=== PATIENT | female | born 1980 | race Hispanic/Latino ===

== ENCOUNTER 2018-09-11 22:45 | Emergency (ER) | payer SELFPAY ==
[2018-09-11 22:46] VITALS: BP 114/69; PULSE 63; RESP 15; TEMP 36.8; O2SAT 100; BMI 20.2
[2018-09-11 22:55] VITALS: BP 112/68; PULSE 72; RESP 15; TEMP 37; O2SAT 99
--- NOTE | 2018-09-11 23:53 | ED.VIS.GEN ---
History of Present Illness Chief Complaint: Abd Pain Informant: Patient Narrative: She presents with lower abdominal pain. She states is over her bladder. She has had urinary tract infections in the remote past. She describes a aching pain in that area. She tried 2 doses of azithromycin. Is been going on for 1 week. She denies . She denies history of sexual transmitted disease. No vaginal symptoms. No fevers or chills. She denies any pain in her left lower or right lower regions. She is passing normal gas. No diarrhea. No previous abdominal surgeries. Past Medical History - Allergies and Home Meds Allergies/Adverse Reactions: Allergies No Known Allergies Allergy (Verified 09/11/18 22:55) Primary Care Physician: [facility] Doctor,Out of [NON-STAFF] - Prior records reviewed: Yes Past Medical History: - - Tract infection Surgical History: no surgical history Smoking Status: Never smoker Alcohol: None Drugs: None Review of Systems General: Denies: Chills, Fever, Sweats Eyes: Denies: Visual changes - bilaterally, Diplopia ENT: Denies: Rhinorrhea, Sore throat Cardiovascular: Denies: Chest pain, Palpitations Respiratory: Denies: Dyspnea, Cough, Dyspnea on exertion Gastrointestinal: Reports: Abdominal pain. Denies: Nausea, Vomiting, Diarrhea, Melena, Hematochezia Genitourinary: Denies: Dysuria, Hematuria, Frequency Musculoskeletal: Denies: Back pain, Extremity Pain Skin: Denies: Rash, Wounds Neurological: Denies: Headache, Weakness, Numbness Physical Exam Vital Signs/Narrative: Vital Signs Temp Pulse Resp BP Pulse Ox 09/11/18 22:46 98.3 F 63 15 114/69 100 General: Well nourished, Well developed, No Acute Distress Head: Normocephalic, Atraumatic Eyes: Perrl, EOMI ENT: Moist mucous membranes, No rhinorrhea Neck: Supple, Nontender Cardiovascular: Regular rate, Regular rhythm, No murmurs Respiratory: No distress, CTA bilaterally, Chest nontender Abdomen: Soft, Nondistended, Normal bowel sounds, Tender - Suprapubic tenderness. No guarding.. Negative for: Nontender Back: Nontender, Normal Inspection Extremities: Nontender, No edema Skin: Normal color, No rash Neurological: Alert, Oriented x3, Cranial nerves II-XII grossly intact, Normal Strength, Normal Sensation Psychological: Normal affect, Normal Mood Diagnostic/Tx/Re-eval - Medical Decision Making She given Tylenol. Lab work obtained also some tests are negative. She is resting comfortably on reevaluation. Have a low suspicion for acute intra-abdominal emergency that would warrant further lab work or imaging. Nonetheless I did offer them to her. The patient would like to follow-up as an outpatient. She thinks maybe she has a partially treated UTI that she took azithromycin for at home. This is possible however it could be other ideology as well. Patient denies history of sexual transmitted infection. I do not think she has a cervicitis. I do not think she needs a pelvic exam. I do not think she has an ovarian torsion. She will be given a referral to family doctor and will continue taking Aleve. ED Disposition - Plan for ED Patient: Disposition: [facility] Unit Diagnosis: Lower abdominal pain Instructions: ABDOMINAL PAIN, Unknown Cause, (Female) Referrals: [facility] Doctor,Out of [NON-STAFF] - Maurilio Church, [NON CLINICAL AFFILIATE] -
[2018-09-11 23:55] VITALS: BP 112/62; PULSE 76; RESP 16; TEMP 36.9; O2SAT 98
[2018-09-11 23:58] LABS: Bacteria 0 SEEN /hpf (None Seen); Mucous, Urine 0 SEEN /hpf (<or=2+); Red Blood Cells-Urine 0 SEEN /hpf (0-5)
[2018-09-11] MEDS: Acetaminophen 500 MG Tablet 1000 MG PO (23:59)
[2018-09-12 00:07] LABS: Internal QC Validated? YES +Cl - CLEAR BKGD; Pregnancy, Urine Negative Negative
[2018-09-12 00:19] LABS: Color, Urine Yellow (Yellow); Glucose, Dipstick Normal (Normal); Ketone-Dipstick Negative (Negative); Leukocyte Esterase-Dipstick 25 /ul (Negative); Nitrite-Dipstick Negative (Negative); Occult Blood-Urine Negative /ul (Negative); Protein-Dipstick Negative (Negative); Urine Bilirubin Dipstick Negative (Negative); Urine Clarity Sl. Cloudy (Clear); Urine Urobilinogen Normal (Normal); Urine pH 6.5 (5.0 - 8.0)
[2018-09-12 00:22] LABS: Squamous Epithelial Cells - UA 0-5 SEEN /hpf (5-10); Transitional Epithelial - Ur 0-5 SEEN /hpf (0-5); White Blood Cells 0-5 SEEN /hpf (0-5)
[2018-09-12 01:38] VITALS: BP 123/84; PULSE 81; O2SAT 98
--- NOTE | 2018-09-12 01:39 | ED.RN ---
PATIENT'S FRIEND WAS AT THE BEDSIDE TRANSLATING THE DISCHARGE INSTRUCTIONS. PATIENT WAS UPSET THAT WE DID NOT HAVE AN ANSWER FOR HER ABDOMINAL PAIN. DR. CARBAJAL WAS ASKED BY THIS NURSE HOW MUCH NAPROXEN SHE CAN TAKE PER DAY AND HE SAID TWO OTC TABLETS TWICE DAILY WHICH I TOLD THE FRIEND TO TRANSLATE. ALL OF THEIR QUESTIONS WERE ANSWERED PRIOR TO LEAVING.
== END 2018-09-12 01:41 ==
PROVIDERS: Emergency Provider Emergency Medicine
DX: R10.30 Lower abdominal pain, unspecified (principal); Z87.440 Personal history of urinary (tract) infections
CPT/HCPCS: 81001; 81025; 99282